=== PATIENT | female | born 1985 | race Caucasian/White ===

== ENCOUNTER 2017-01-18 12:48 | Emergency (ER) | payer OTHER ==
[2017-01-18 13:06] VITALS: BP 115/63; PULSE 88; TEMP 98; BMI 26.6
--- NOTE | 2017-01-18 14:48 | PDOC ---
History of Present Illness - General Chief Complaint: Sore Throat Stated Complaint: SORE THROAT Time Seen by Provider: 01/18/17 14:10 History Source: Patient Exam Limitations: No Limitations - History of Present Illness Initial Comments: 01/18/17 14:42 Chief complaint: Throat pain Patient is a healthy 31-year-old female with 1 day of throat pain to the left side and swelling to the neck as per patient. Did not take any pain medicine. Patient think she had a fever earlier today. Should also complaining about itchy area on her back. No other symptoms. GENERAL/CONSTITUTIONAL: No fever, weakness. dizziness HEAD, EYES, EARS, NOSE AND THROAT: No change in vision. No ear pain or discharge. +sore throat. CARDIOVASCULAR: No chest pain RESPIRATORY: No shortness of breath or cough GASTROINTESTINAL: No pain, nausea, vomiting, diarrhea or constipation GENITOURINARY: No dysuria MUSCULOSKELETAL: No neck or back pain SKIN: +rash NEUROLOGIC: No headache, vertigo, loss of consciousness, or loss of sensation. GENERAL: The patient is awake, alert, and fully oriented, in no acute distress. HEAD: Normal with no signs of trauma. EYES: Pupils equal, round and reactive to light, sclera anicteric, conjunctiva clear. ENT: pharynx: Mild erythema, no exudate, uvula midline, no signs of peritonsillar abscess, speech is clear NECK: supple, no swelling or tenderness, no signs of abscess CHEST: clear, nontender, rr ABD: soft, nontender EXTREMITIES: Normal range of motion, no edema. NEUROLOGICAL: Normal speech, normal gait. SKIN: Warm, Dry, proximately 2 cm x 3 cm blanchable urticaria area to the left side of the mid back, no signs of infection, no vesicles, no purpura, no petechiae. Past History - Past Medical History Allergies/Adverse Reactions: Allergies Allergy/AdvReac Type Severity Reaction Status Date / Time No Known Allergies Allergy Verified 01/18/17 13:00 Home Medications: Ambulatory Orders Amoxicillin - [Amoxicillin 875mg Tablet -] 875 mg PO BID #20 tablet 01/18/17 Other medical history: NONE - Surgical History Abdominal Surgery: Yes - Psycho/Social/Smoking Cessation Hx Anxiety: No Suicidal Ideation: No Smoking History: Never smoked Have you smoked in the past 12 months: No Information on smoking cessation initiated: No Hx Alcohol Use: No Drug/Substance Use Hx: No Substance Use Type: None *Physical Exam - Vital Signs Last Vital Signs Temp Pulse Resp BP Pulse Ox 98.0 F 88 18 115/63 100 01/18/17 13:01 01/18/17 13:01 01/18/17 13:01 01/18/17 13:01 01/18/17 13:01 *DC/Admit/Observation/Transfer Diagnosis at time of Disposition: Pharyngitis Qualifiers: Pharyngitis/tonsillitis etiology: unspecified etiology Qualified Code(s): J02.9 - Acute pharyngitis, unspecified - Discharge Dispostion Disposition: HOME Condition at time of disposition: Stable - Prescriptions Prescriptions: Amoxicillin - [Amoxicillin 875mg Tablet -] 875 mg PO BID #20 tablet - Patient Instructions Printed Discharge Instructions: DI for Pharyngitis/Tonsillopharyngitis -- Adult Additional Instructions: Drink 2-3 L of water daily Take Tylenol 650 mg every 4 hours or Motrin 600 mg every 6 hours for fever and pain Take the amoxicillin one tablet every 12 hours for 10 days, do not stop it early You can take Benadryl 25 mg for the itching, and return to the ER tomorrow if this gets worse or looks different and I will reevaluate it Return to the nearest ER if short of breath, unable to swallow or feeling sicker Followup with your doctor in one to 2 days
[2017-01-18] MEDS ORDERED: IBUPROFEN 600 MG TABLET (FP) PO ONE ×2 (14:49→14:51)
== END 2017-01-18 14:55 | disposition home or self-care (01) ==
LOC: JERFT 12:48
DX: J02.9 Acute pharyngitis, unspecified (principal)
CPT/HCPCS: 99281-25

== ENCOUNTER 2020-08-31 19:08 | Emergency (ER) | payer OTHER ==
[2020-08-31 19:15] VITALS: BP 118/66; PULSE 85; TEMP 98.2; BMI 34.3
[2020-08-31] MEDS ORDERED: KETOROLAC TROMETHAMINE 60 MG/2 ML VIAL IM ONE (19:52)
[2020-08-31] MEDS ORDERED: KETOROLAC TROMETHAMINE 60 MG/2 ML VIAL ONE (20:00)
== END 2020-08-31 20:28 | disposition home or self-care (01) ==
LOC: JERFT 19:08
PROC: 3E0233Z Introduction of Anti-inflammatory into Muscle, Percutaneous Approach (ICD-10-PCS; principal; 2020-08-31)
DX: M25.562 Pain in left knee (principal)
CPT/HCPCS: 99284-25

== ENCOUNTER 2021-12-04 13:24 | Emergency (ER) | payer OTHER ==
[2021-12-04 13:29] VITALS: BP 119/78; PULSE 65; TEMP 97.8; BMI 29.9
[2021-12-04] MEDS ORDERED: LIDOCAINE 5% TOPICAL PATCH TP ONE (14:07)
[2021-12-04] MEDS ORDERED: KETOROLAC TROMETHAMINE 60 MG/2 ML VIAL IM ONE (14:07)
[2021-12-04] MEDS ORDERED: KETOROLAC TROMETHAMINE 30 MG/1 ML VIAL ONE (14:10)
[2021-12-04] MEDS ORDERED: LIDOCAINE 5% TOPICAL PATCH ONE (14:10)
[2021-12-04 14:36] LABS: EPI CELLS 13 /uL (0-25.1); HCG,QUALITATIVE URINE Negative; HYALINE CASTS 1 /uL (0-3.1); PH,URINE 6.5 (5.0-8.0); URINE APPEARANCE CLEAR; URINE BACTERIA 53 /uL (0-1359); URINE BILIRUBIN NEGATIVE (NEGATIVE); URINE COLOR DK YELLOW; URINE GLUCOSE (UA) NEGATIVE (NEGATIVE); URINE KETONE NEGATIVE (NEGATIVE); URINE LEUK ESTERASE TRACE (NEGATIVE); URINE NITRITE NEGATIVE (NEGATIVE); URINE PROTEIN TRACE (NEGATIVE); URINE RBC 9150 /uL (0-23.9); URINE UROBILINOGEN 0.2 mg/dL (0.2-1.0); URINE WBC 17 /uL (0-25.8)
[2021-12-04] MEDS ORDERED: LIDOCAINE PATCH REMOVAL MC ONE (22:00)
== END 2021-12-04 17:02 | disposition home or self-care (01) ==
LOC: JERFT 13:24
PROC: 3E0233Z Introduction of Anti-inflammatory into Muscle, Percutaneous Approach (ICD-10-PCS; principal; 2021-12-04)
DX: M54.50 Low back pain, unspecified (principal); N83.202 Unspecified ovarian cyst, left side
CPT/HCPCS: 74176-TC; 81003; 84703; 87086; 99284-25

== ENCOUNTER 2022-01-12 14:37 | Emergency (ER) | payer OTHER ==
[2022-01-12 15:02] VITALS: BMI 29.9
[2022-01-12] MEDS ORDERED: SODIUM CHLORIDE 1,000 ML IV STA (15:44)
[2022-01-12] MEDS ORDERED: ONDANSETRON 4 MG/2 ML VIAL IVPUSH ONE (15:44)
[2022-01-12] MEDS ORDERED: ONDANSETRON 4 MG/2 ML VIAL ONE (15:54)
[2022-01-12 17:22] LABS: BASO % 0.3 % (0-2.0); EOS % 0.1 % (0-4.5); HEMATOCRIT 37.9 % (32.4-45.2); HEMOGLOBIN 12.7 GM/dL (10.7-15.3); LYMPH % 7.7 % (8-40); MCH 29.5 pg (25.7-33.7); MCHC 33.6 g/dl (32.0-36.0); MEAN CELL VOLUME 87.8 fl (80-96); MEAN PLT VOLUME 8.9 fl (7.5-11.1); MONO % 4.2 % (3.8-10.2); NEUT % 87.7 % (42.8-82.8); PLATELET COUNT 255 10^3/uL (134-434); RBC 4.32 M/mm3 (3.60-5.2); RDW 13.7 % (11.6-15.6); WHITE BLOOD COUNT 9.9 K/mm3 (4.0-10.0)
[2022-01-12 17:44] LABS: ALBUMIN 3.9 g/dl (3.4-5.0); BLOOD UREA NITROGEN 13.6 mg/dL (7-18); CALCIUM 9.4 mg/dL (8.5-10.1)
[2022-01-12 17:45] LABS: EPI CELLS 14 /uL (0-25.1); HYALINE CASTS 1 /uL (0-3.1); PH,URINE 6.5 (5.0-8.0); URINE APPEARANCE CLEAR; URINE BACTERIA 1108 /uL (0-1359); URINE BILIRUBIN NEGATIVE (NEGATIVE); URINE COLOR YELLOW; URINE GLUCOSE (UA) NEGATIVE (NEGATIVE); URINE KETONE TRACE (NEGATIVE); URINE LEUK ESTERASE NEGATIVE (NEGATIVE); URINE NITRITE NEGATIVE (NEGATIVE); URINE PROTEIN TRACE (NEGATIVE); URINE RBC 70 /uL (0-23.9); URINE UROBILINOGEN 0.2 mg/dL (0.2-1.0); URINE WBC 9 /uL (0-25.8)
[2022-01-12 17:47] LABS: CREATININE 0.7 mg/dL (0.55-1.3)
[2022-01-12 17:48] LABS: TOT PROT 7.7 g/dl (6.4-8.2)
[2022-01-12 17:49] LABS: BILIRUBIN,TOTAL 0.8 mg/dL (0.2-1)
[2022-01-12] MEDS ORDERED: ACETAMINOPHEN 500 MG TABLET (FP) ONE (18:53)
[2022-01-12] MEDS ORDERED: ACETAMINOPHEN 500 MG TABLET (FP) PO ONE (18:53)
[2022-01-12 19:17] VITALS: BP 98/57; PULSE 92; TEMP 101.1
[2022-01-13 15:08] LABS: SARS-CoV-2 NAA Not Detected (Not Detected)
== END 2022-01-12 19:05 | disposition home or self-care (01) ==
LOC: JER 14:37
PROC: 3E033GC Introduction of Other Therapeutic Substance into Peripheral Vein, Percutaneous Approach (ICD-10-PCS; principal; 2022-01-12)
PROC: 3E0337Z Introduction of Electrolytic and Water Balance Substance into Peripheral Vein, Percutaneous Approach (ICD-10-PCS; 2022-01-12)
DX: N30.90 Cystitis, unspecified without hematuria (principal)
CPT/HCPCS: 36415; 80053; 81003; 83690; 84703; 85025; 87086; 87804; 96361; 96374; 99284-25; C9803-CS; U0003; U0005

== ENCOUNTER 2023-09-12 20:34 | Emergency (ER) | payer OTHER ==
[2023-09-12 20:44] VITALS: RESP 18; BMI 30.2
[2023-09-12] MEDS ORDERED: ACETAMINOPHEN 500 MG TABLET (FP) PO ONE (21:15)
[2023-09-12] MEDS ORDERED: ACETAMINOPHEN 500 MG TABLET (FP) ONE (21:49)
[2023-09-12 21:53] LABS: BASO % 0.5 % (0-2.0); EOS % 0.8 % (0-4.5); HEMOGLOBIN 11.7 GM/dL (10.7-15.3); LYMPH % 51.5 % (8-40); MCH 29.2 pg (25.7-33.7); MCHC 33.3 g/dl (32.0-36.0); MEAN CELL VOLUME 87.6 fl (80-96); MEAN PLT VOLUME 7.8 fl (7.5-11.1); MONO % 12.3 % (3.8-10.2); NEUT % 34.9 % (42.8-82.8); PLATELET COUNT 238 10^3/uL (134-434); RDW 13.2 % (11.6-15.6); WHITE BLOOD COUNT 5.2 K/mm3 (4.0-10.0)
[2023-09-12 22:07] LABS: INR 1.02 (0.83-1.09); PROTHROMBIN TIME (PATIENT) 11.8 SEC (9.7-13.0)
[2023-09-12 22:09] LABS: ACTIVATED PTT 31.9 SECONDS (25.2-36.5)
[2023-09-12 22:12] LABS: POTASSIUM 3.7 mmol/L (3.5-5.1)
[2023-09-12 22:14] LABS: CALCIUM 8.2 mg/dL (8.5-10.1)
[2023-09-12 22:15] LABS: ALBUMIN 3.4 g/dl (3.4-5.0); BLOOD UREA NITROGEN 12.9 mg/dL (7-18)
[2023-09-12 22:18] LABS: CREATININE 0.7 mg/dL (0.55-1.3)
[2023-09-12 22:19] LABS: TOT PROT 7.2 g/dl (6.4-8.2)
[2023-09-12 22:20] LABS: BILIRUBIN,TOTAL 0.3 mg/dL (0.2-1)
[2023-09-12 23:22] VITALS: BP 112/74; PULSE 78; TEMP 98.8
== END 2023-09-12 23:22 | disposition home or self-care (01) ==
LOC: JER 20:34
DX: R07.9 Chest pain, unspecified (principal); R50.9 Fever, unspecified; R05.9 Cough, unspecified; J10.1 Influenza due to other identified influenza virus with other respiratory manifestations; Z20.822 Contact with and (suspected) exposure to COVID-19
CPT/HCPCS: 0241U-QW; 36415; 71046-TC-FY; 80053; 84484; 84703; 85025; 85610; 85730; 93005; 93010; 99285-25